=== PATIENT | female | born 1980 | race Caucasian/White ===

== ENCOUNTER 2017-01-22 16:51 | Emergency (ER) | payer MEDICAID ==
[~2017-01-22] VITALS: Ht 170.2 cm; Wt 55.7 kg
[2017-01-22 16:57] VITALS: BP 100/66
== END 2017-01-22 17:57 | disposition home or self-care (01) ==
LOC: ED 17:51
DX: K13.0 Diseases of lips (principal)
CPT/HCPCS: 99283